=== PATIENT | female | born 1995 | race Caucasian/White ===

== ENCOUNTER 2022-06-19 16:15 | Emergency (ER) | payer SELFPAY ==
--- NOTE | 2022-06-19 16:22 | ED.GENADULT ---
HPI - General Adult General Chief complaint: Ear Stated complaint: sore throat Source: patient and RN notes reviewed History of Present Illness HPI narrative: 26-year-old female presents to urgent care with complaints of a sore throat since yesterday. Patient also reports right ear clogged. Patient denies any fevers, chills, cough, congestion, chest pain, shortness of breath vomiting, or diarrhea. Patient states she tested positive for strep throat approximately 10 days ago which she took Augmentin for. Some parts of this dictation were generated by voice recognition software and may contain typographical and/or grammatical inaccuracies. Related Data Home Medications Medication Instructions Recorded Confirmed No Home Medications 06/19/22 06/19/22 Allergies Allergy/AdvReac Type Severity Reaction Status Date / Time No Known Allergies Allergy Verified 06/19/22 16:29 Review of Systems Review of Systems: Pertinent positives and pertinent negatives per HPI. PMFSH Comments At the time of my signature, I reviewed and agree with the nursing past medical, surgical, social, and family history. There is no relevant family history pertinent to the patient complaint. Exam Narrative: GENERAL: This is a well-nourished, well-developed patient, in no apparent distress. HEAD: normocephalic, atraumatic. EYES: PERRL. Sclera clear/white. Vision is grossly intact. EARS: External ears normal, auditory canals clear and without drainage, TMs normal without perforation. Hearing grossly intact. NOSE: External nose normal with no obvious nasal discharge, nares without redness, no rhinorrhea. THROAT: Mucous membranes moist, posterior pharynx clear. NECK: Neck supple, non-tender without lymphadenopathy, masses or thyromegaly. CARDIOVASCULAR: Regular rate and rhythm without murmurs, gallops, or rubs. RESPIRATORY: Clear to auscultation. Breath sounds equal bilaterally. No wheezes, rales, or rhonchi. GASTROINTESTINAL: Abdomen soft, non-tender, nondistended. Bowel sounds are active. No hepato-splenomegaly, or palpable masses. No guarding. SKIN: warm, intact with no suspicious lesions or rash, good texture and turgor. NEURO: awake, alert, and oriented to person, place and time. There were no obvious focal neurologic abnormalities. Course Course Level of Care: Express Care Visit Vital Signs Vital signs: Vital Signs Temperature 98.1 F 06/19/22 16:27 Pulse Rate 82 06/19/22 16:27 Respiratory Rate 16 06/19/22 16:27 Blood Pressure 137/63 06/19/22 16:27 Pulse Oximetry 100 06/19/22 16:27 Oxygen Delivery Room Air 06/19/22 16:27 Temperature 98.1 F 06/19/22 16:27 Pulse Rate 82 06/19/22 16:27 Respiratory Rate 16 06/19/22 16:27 Blood Pressure 137/63 06/19/22 16:27 Pulse Oximetry 100 06/19/22 16:27 Oxygen Delivery Room Air 06/19/22 16:27 Reviewed Medical Decision Making MDM Narrative Medical decision making narrative: Rapid strep is negative in the office; however we will send to the lab for confirmation; there is a small percentage chance that it can come back positive; if it is, we will call you in 2-3days; and your prescription will be call in to your pharmacy. However, there is NO indication for antibiotic at this time. -Increase your fluids and Vitamin C. -Oral rinses such as: Salt water gargles and/or may use topical anesthetic (eg. Chloraseptic spray) or lozenges to relieve dryness or throat pain. -Take tylenol and ibuprofen as needed for pain and fever as directed. -Frequent hand washing or hand wood cut engraver is one of the best ways to prevent spread of infection. -Follow up with primary care provider in 2-3 days if condition is not improving or seek ER visit if your child starts breathing fast/has trouble breathing, is not drinking enough fluids, muffle voice, difficulty opening the mouth or will not wake up or will not interact with you. Differential Diagnosis Differential Diagnosis: AOM, strep throat,
[2022-06-19 16:27] VITALS: BP 137/63; PULSE 82; RESP 16; TEMP 36.7; O2SAT 100
== END 2022-06-19 16:51 | disposition home or self-care (01) ==
PROVIDERS: Emergency Provider Nurse Practitioner Family
DX: J02.9 Acute pharyngitis, unspecified (principal)
CPT/HCPCS: 87081; 87880; 99213; G0463